=== PATIENT | male | born 1960 | race Two or more races ===

== ENCOUNTER → 2017-03-25 | Day surgery (SDC) | payer OTHER ==
[~2017-03-25] MED LIST: FLEXERIL10 M1 PO; IBUPROFEN800 MG PO; NO MEDICATIONS; TYLENOL #3 PO
--- NOTE | ~2017-03-25 | OR ---
Unit #: [id number] #: [id number] Patient: LIV KEANE [id number] [address] [id number] [id number] MR#: [id number] NAME: LIV KEANE ROOM: Date of Procedure: 03/25/2017 Admission Date: 03/25/2017 Surgeon: Sadi Estrada M.D. : 1960 Attending Physician: Sadi Estrada M.D. OPERATIVE REPORT PREOPERATIVE DIAGNOSIS Screening colonoscopy. POSTOPERATIVE DIAGNOSIS Screening colonoscopy. PROCEDURES PERFORMED 1. Colonoscopy to terminal ileum. 2. Polypectomy of cecal polyp with electrocautery snare. 3. Placement of hemoclip on polypectomy site. ANESTHESIA Monitored anesthesia care. FINDINGS The patient had a 5 mm polyp excised with good hemostasis using the electrocautery snare in the apex of the cecum. A hemoclip was placed to ensure hemostasis. Mild internal hemorrhoids were seen. SPECIMENS Sent to Pathology. COMPLICATIONS None apparent. CONDITION The patient tolerated the procedure well. INDICATIONS FOR PROCEDURE The patient is a 52-year-old male, who presents at this time for screening colonoscopy. DESCRIPTION OF PROCEDURE After obtaining informed consent through the patient's Mobile Authentication manager client named George, the patient was brought to the endoscopy suite and after adequate monitored anesthesia care, had the colonoscope placed through the anus and slowly advanced to the level of the cecum without difficulty with the lumen always in view. We were able to pass through the ileocecal valve into the terminal ileum. The terminal ileum was normal as was the ileocecal valve. In the apex of the cecum, there was a 4 to 5 mm polyp present. It was excised completely with electrocautery snare with good hemostasis. To ensure hemostasis, a hemoclip was placed Unit #: [id number] #: [id number] Patient: LIV KEANE on the polypectomy site. The area was deflated and there was good hemostasis still. After the area was reinsufflated on pulling back from above the cecum, the ascending colon was normal as was the hepatic flexure, transverse colon, splenic flexure, descending colon, sigmoid colon, and rectum. On retroflexing in the rectum to the anorectal junction, there were some mild internal hemorrhoids seen. The scope was removed without difficulty. The patient tolerated the procedure well and went from the endoscopy suite to the recovery area in stable condition. RECOMMENDATIONS High-fiber diet, lots of liquids, tucks or wipes p.r.n. Call on Thursday for pathology report. Dictated by... Rosalba Avendaño/latoya TD: 03/26/2017 01:53 JOB #: [id number] CC: [facility] Agustin Blackwell M.D. OPERATIVE REPORT Page 1 of 1 X Sadi Estrada MD X PROCEDURE OPERATIVE NOTE
== END | disposition home or self-care (01) ==
LOC: COPS 10:58
DX: Z12.11 Encounter for screening for malignant neoplasm of colon (principal); D12.0 Benign neoplasm of cecum; K64.8 Other hemorrhoids; K21.9 Gastro-esophageal reflux disease without esophagitis; F17.210 Nicotine dependence, cigarettes, uncomplicated; Z90.49 Acquired absence of other specified parts of digestive tract; Z98.890 Other specified postprocedural states
CPT/HCPCS: 88305